=== PATIENT | female | born 1985 | race Caucasian/White ===

== ENCOUNTER 2018-01-10 00:14 | Emergency (ER) | payer OTHER ==
[~2018-01-10] VITALS: Ht 157.5 cm; Wt 51.0 kg
[~2018-01-10 00:14] MED LIST: DICY10 PO; LEXA10TA PO
[2018-01-10 00:17] VITALS: BP 121/55; PULSE 134; RESP 18; TEMP 98.8; O2SAT 99
[2018-01-10 00:59] VITALS: PULSE 109; RESP 18; O2SAT 99
[2018-01-10 01:48] VITALS: O2SAT 98
[2018-01-10 01:49] LABS: BILIRUBIN, URINE NEG (NEG); BLOOD, URINE SMALL (NEG); GLUCOSE,URINE NEG (NEG); KETONE, URINE 15 mg/dL (NEG); NITRITE,URINE NEG (NEG); URINE LEUKOCYTE ESTERASE NEG (NEG)
[2018-01-10 01:51] LABS: AUTOMATED NEUTROPHIL # 3.1 TH/MM3 (1.8-7.7); BASOPHIL % 0.8 % (0.0-2.0); EOSINOPHIL % 0.6 % (0.0-4.0); HEMATOCRIT 41.4 % (35.0-46.0); HEMOGLOBIN 13.7 GM/DL (11.6-15.3); LYMPH % 8.6 % (9.0-44.0); LYMPHOCYTE # 0.3 TH/MM3 (1.0-4.8); MEAN CELL VOLUME 93.3 FL (80.0-100.0); MEAN CORPUSCULAR HEMOGLOBIN 30.9 PG (27.0-34.0); MEAN CORPUSCULAR HGB CONC 33.1 % (32.0-36.0); MEAN PLATELET VOLUME 8.5 FL (7.0-11.0); MONO % 13.4 % (0.0-8.0); MONOCYTE # 0.5 TH/MM3 (0-0.9); NEUT % 76.6 % (16.0-70.0); PLATELET COUNT 128 TH/MM3 (150-450); RED BLOOD COUNT 4.44 MIL/MM3 (4.00-5.30); RED CELL DISTRIBUTION WIDTH 12.6 % (11.6-17.2); WHITE BLOOD COUNT 3.9 TH/MM3 (4.0-11.0)
--- NOTE | 2018-01-10 01:51 | PD ---
HPI Chief Complaint: GI Complaint Time Seen by Provider: 01:46 Travel History International Travel<30 days: No Contact w/Intl Traveler<30days: No Traveled to known affect area: No History of Present Illness HPI The patient is a 32-year-old female that complains of nausea, vomiting and diarrhea for 3 days. She has a low-grade temperature running as high as 100 at home. There is been no blood in the stool. She vomited once and there is no blood in the vomitus that she is nauseated. She does not have any abdominal discomfort. The patient denies any recent foreign travel, well water ingestion , recent antibiotics, history of bowel problems like regional enteritis or ulcerative colitis. She does have exposure to her children who had similar symptoms. [facility] Past Medical History Anxiety: Yes Cardiovascular Problems: Yes (MVP) Diminished Hearing: No Genitourinary: Yes (PROLAPSED BLADDER) Neurologic: Yes (NEURO CARDIOGENIC SYNCOPE) Tetanus Vaccination: Never Vaccinated Influenza Vaccination: No ?: Not LMP: 01-10-18 Menopausal: No : 3 Para: 2 Miscarriage: 1 Dilation and Curettage (D&C): Yes Social History Alcohol Use: Yes (OCC) Tobacco Use: No Substance Use: No Allergies-Medications (Allergen,Severity, Reaction): Coded Allergies: No Known Allergies (Verified Adverse Reaction, Unknown, 01/10/18) Reported Meds & Prescriptions Reported Meds & Active Scripts Active Zofran (Ondansetron HCl) 8 Mg Tab 8 Mg PO TID Bentyl (Dicyclomine HCl) 10 Mg Cap 10 Mg PO QID Reported Lexapro (Escitalopram Oxalate) 10 Mg Tab 10 Mg PO DAILY Review of Systems Except as stated in HPI: all other systems reviewed are Neg Physical Exam Narrative GENERAL: The patient is alert, mildly dehydrated appearing, oriented 3 in no apparent distress. Her vital signs show heart rate of 134 but otherwise are normal. SKIN: Focused skin assessment warm/dry. HEAD: Atraumatic. Normocephalic. EYES: Pupils equal and round. No scleral icterus. No injection or drainage. ENT: No nasal bleeding or discharge. Mucous membranes pink and moist. NECK: Trachea midline. No JVD. CARDIOVASCULAR: Regular rate and rhythm. No murmur appreciated. RESPIRATORY: No accessory muscle use. Clear to auscultation. Breath sounds equal bilaterally. GASTROINTESTINAL: Abdomen soft, with minimal discomfort to direct palpation in the bilateral lower quadrant areas, nondistended. Hepatic and splenic margins not palpable. No guarding or rebound is present. MUSCULOSKELETAL: No obvious deformities. No clubbing. No cyanosis. No edema. NEUROLOGICAL: Awake and alert. No obvious cranial nerve deficits. Motor grossly within normal limits. Normal speech. PSYCHIATRIC: Appropriate mood and affect; insight and judgment normal. Data Data Last Documented VS Vital Signs Date Time Temp Pulse Resp B/P (MAP) Pulse Ox O2 Delivery O2 Flow Rate FiO2 01/10/18 02:29 101 16 96/56 (69) 99 Room Air 01/10/18 00:17 98.8 Orders Orders Influenzae A/B Antigen (01/10/18 01:30) Complete Blood Count With Diff (01/10/18 01:32) Comprehensive Metabolic Panel (01/10/18 01:32) Urinalysis - C+S If Indicated (01/10/18 01:32) Iv Access Insert/Monitor (01/10/18 01:32) Oximetry (01/10/18 01:32) Lipase (01/10/18 01:32) Ed Urine Pregnancytest Poc (01/10/18 01:46) Sodium Chlor 0.9% 1000 Ml Inj (Ns 1000 M (01/10/18 02:00) Ondansetron Inj (Zofran Inj) (01/10/18 02:00) Labs Laboratory Tests Test 01/10/18 01:35 White Blood Count 3.9 TH/MM3 Red Blood Count 4.44 MIL/MM3 Hemoglobin 13.7 GM/DL Hematocrit 41.4 % Mean Corpuscular Volume 93.3 FL Mean Corpuscular Hemoglobin 30.9 PG Mean Corpuscular Hemoglobin Concent 33.1 % Red Cell Distribution Width 12.6 % Platelet Count 128 TH/MM3 Mean Platelet Volume 8.5 FL Neutrophils (%) (Auto) 76.6 % Lymphocytes (%) (Auto) 8.6 % Monocytes (%) (Auto) 13.4 % Eosinophils (%) (Auto) 0.6 % Basophils (%) (Auto) 0.8 % Neutrophils # (Auto) 3.1 TH/MM3 Lymphocytes # (Auto) 0.3 TH/MM3 Monocytes # (Auto) 0.5 TH/MM3 Eosinophils # (Auto) 0.0 TH/MM3 Basophils # (Auto) 0.0 TH/MM3 CBC Comment DIFF FINAL Differential Comment Urine Color YELLOW Urine Turbidity CLEAR Urine pH 6.0 Urine Specific [place] 1.006 Urine Protein NEG mg/dL Urine Glucose (UA) NEG mg/dL Urine Ketones 15 mg/dL Urine Occult Blood SMALL Urine Nitrite NEG Urine Bilirubin NEG Urine Leukocyte Esterase NEG Urine RBC 0-3 /hpf Urine WBC 0-2 /hpf Urine WBC Clumps Urine Squamous Epithelial Cells 0-5 /hpf Urine Bacteria NONE /hpf Microscopic Urinalysis Comment CULT NOT INDICATED Blood Urea Nitrogen 5 MG/DL Creatinine 0.60 MG/DL Random Glucose 120 MG/DL Total Protein 6.7 GM/DL Albumin 3.3 GM/DL Calcium Level 8.0 MG/DL Alkaline Phosphatase 66 U/L Aspartate Amino Transf (AST/SGOT) 27 U/L Alanine Aminotransferase (ALT/SGPT) 21 U/L Total Bilirubin 0.4 MG/DL Sodium Level 133 MEQ/L Potassium Level 3.2 MEQ/L Chloride Level 100 MEQ/L Carbon Dioxide Level 26.7 MEQ/L Anion Gap 6 MEQ/L Estimat Glomerular Filtration Rate 117 ML/MIN Lipase 86 U/L [facility] Medical Decision Making Medical Screen Exam Complete: Yes Emergency Medical Condition: Yes Medical Record Reviewed: Yes Interpretation(s) The complete metabolic profile shows an albumin of 3.3, calcium 8.0, sodium 133 and potassium 3.2 but is otherwise unremarkable. The lipase is normal. The urine shows 15 ketones and small blood but is otherwise unremarkable and culture is not indicated. The influenza A/B antigen is negative for flu a and flu B antigen. The CBC shows a low white count of 3900 with 128,000 platelets but is otherwise unremarkable. Differential Diagnosis Viral gastroenteritis, colitis, urinary tract infection, dehydration, electrolyte disorder, anemia, pancreatitis Narrative Course The patient appears to have viral gastroenteritis. When she drinks any fluids she does not get nauseated but she gets abdominal cramping. She then after few minutes gets diarrhea again. Diagnosis Primary Impression: Viral gastroenteritis Additional Instructions: Keep up on clear liquids. Your body will eventually get rid of the infected stool. I know that you get diarrhea when you drink clear liquids, eventually this will calm down. Follow-up next week with your primary care physician. Scripts Ondansetron (Zofran) 8 Mg Tab 8 MG PO TID for Nausea/Vomiting, #28 TAB 0 Refills Prov: Jayce Flores MD 01/10/18 Disposition: 01 DISCHARGE HOME Condition: Stable Jayce Flores MD Jan 10, 2018 01:50
[2018-01-10] MEDS: SODIUM CHLOR 0.9% 1000 ML INJ 1,000 ML IV SCH ×2 (01:52→02:46)
[2018-01-10 01:56] LABS: RBC, URINE 0-3 /hpf (0-3); URINE COLOR YELLOW (YELLW/STRAW); WBC, URINE 0-2 /hpf (0-5)
[2018-01-10 01:57] LABS: SQUAMOUS EPITHELIAL CELL URINE 0-5 /hpf (0-5)
[2018-01-10 01:58] LABS: CHLORIDE 100 MEQ/L (98-107); SODIUM (NA) 133 MEQ/L (136-145)
[2018-01-10] MEDS ORDERED: ONDANSETRON HCL 4 MG/2 ML VIAL IV ONE (02:00)
[2018-01-10 02:02] LABS: ALBUMIN 3.3 GM/DL (3.4-5.0); BICARBONATE 26.7 MEQ/L (21.0-32.0); BLOOD UREA NITROGEN 5 MG/DL (7-18); GLUCOSE,RANDOM 120 MG/DL (74-106)
[2018-01-10 02:05] LABS: ALT (GPT) 21 U/L (10-53); AST (GOT) 27 U/L (15-37); GLOMERULAR FILTRATION RATE 117 ML/MIN (>89)
[2018-01-10 02:06] LABS: TOTAL BILIRUBIN ADULT 0.4 MG/DL (0.2-1.0); TOTAL PROTEIN 6.7 GM/DL (6.4-8.2)
[2018-01-10 02:07] LABS: ALKALINE PHOSPHATASE 66 U/L (45-117)
[2018-01-10] MEDS ORDERED: ZOFR8TAB PO (02:28)
[2018-01-10 02:29] VITALS: BP 96/56; PULSE 101; RESP 16; O2SAT 99
[2018-01-10 03:38] VITALS: BP 111/54; PULSE 109; RESP 16; O2SAT 100
== END 2018-01-10 03:53 | disposition home or self-care (01) ==
LOC: PHED 00:14
DX: A08.4 Viral intestinal infection, unspecified (principal)
CPT/HCPCS: 80053; 81001; 83690; 84703; 85025; 87804; 96361; 96374; 99283; J2405; J7030